=== PATIENT | female | born 1995 | race Caucasian/White ===

== ENCOUNTER 2022-10-26 15:37 | Outpatient (CLI) | payer OTHER, SELFPAY ==
--- NOTE | 2022-10-26 15:57 | P.TNLD_ITS ---
Visit Information Visit Information Date of evaluation: 10/26/22 Primary OB Provider: Celena Santos Reason for Evaluation: Yes non-stress test and Yes rupture of membranes Comments/Additional reasons for admission: Emma called, reporting ROM at 1335 today, clear fluid. Baby moving well. Continues gushing. Feeling anxious about the unknown. Desires antibiotics now, d/c home for expectant management. 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 Bicornuate uterus. Surgical Hx: ureter surgery (1998) Family Hx: depression-mother Meds: probiotic Allergies: None known Social: , lives with Tapan. 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 No tobacco, ETOH or recreational drug use since positive test. Caffeine intake minimal. Pre- wt 125lbs. complicated by GBS bacteriuria, rubella non-immune and bicornuate uterus. Normal growth scans with MFM 08/16 (28 weeks) and 09/27 (34 weeks). EFW 71% & 59% respectively, and fetus vertex both times. 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 Exam Const General: healthy appearing and comfortable Nutritional Appearance: well nourished Orientation: oriented x3 HENMT Head: normal to inspection and normocephalic Skin General: no rashes or lesions noted Neuro General: patient oriented x3 Objective Labs Labs: ABO/RH and CBC drawn, not yet resulted. Evaluation Evaluation Baseline heart rate: 125 Variability: Moderate (11-25) monitor accelerations: Present Monitor Decelerations: Absent Category of Tracing: Reactive Comments: SVE declined due to PROM. Diagnosis, Plan/Disposition Final Diagnosis (1) PROM (premature rupture of membranes): Status: Acute Plan/Disposition Plan: Cefazolin 2 g given IV Reviewed r/b/a of expectant management versus augmentation of labor. Reviewed r/b/a of expectant management in hospital versus d/c home. Return at midnight for evaluation and next dose of antibiotics.
[2022-10-26] MEDS: LACTATED RINGERS 1,000 ML 100 ML IV (16:27)
[2022-10-26] MEDS: CEFAZOLIN 2 GM/100 ML PREMIX 100 ML IV (16:28)
[2022-10-26 18:35] LABS: Hematocrit 39.3 % (36-46); Hemoglobin 13.1 g/dL (12.0-16.0); Mean Corpuscular HGB Conc 33.4 % (30-36); Mean Corpuscular Hemoglobin 28.2 PG (26-34); Mean Corpuscular Volume 84.5 fL (80-100); Platelet Count 213 X10^3/uL (150-400); Red Blood Cell Count 4.65 X10^6/uL (4.0-5.2); Red Cell Distribution Width 14.6 % (11.6-14.8); White Blood Cell Count 10.6 X10^3/uL (4.5-11.0)
== END 2022-10-26 17:05 | disposition home or self-care (01) ==
LOC: LABOR 17:17 → OB 11-01 08:49
PROVIDERS: Referring Provider Advanced Practice Midwife; Visit Provider Advanced Practice Midwife
DX: O42.92 Full-term premature rupture of membranes, unspecified as to length of time between rupture and onset of labor (principal); Z3A.38 38 weeks gestation of pregnancy
CPT/HCPCS: 59025; 76815; 85027; 86900; 86901; 96360; G0378; G0379; J0690

== ENCOUNTER 2022-10-26 23:55 | Outpatient (CLI) | payer OTHER, SELFPAY ==
[2022-10-27] MEDS: CEFAZOLIN VIAL 1 GM in SODIUM CHLORIDE 0.9% 100 ML IV (00:30)
--- NOTE | 2022-10-27 01:13 | PC.NURSE ---
VSS. SROM at 1330 on 10/26/22 has remained clear with pinkish discharge. FHT 125, moderate variability, +accels and no decels. Ctx occassionally, palpate mild. Pt. reports feeling a little crampy, maybe. does not wish to be checked. 1g ancef given. confirmation blood completed for blood type. afebrile. Pt. discharged with spouse with labor precautions and asked to return by 0800 or sooner if needed. Tom aware of and ok with POC. Pt. stable upon d/c.
== END 2022-10-27 01:10 | disposition home or self-care (01) ==
LOC: OB 11-01 08:48
PROVIDERS: Referring Provider Advanced Practice Midwife; Visit Provider Advanced Practice Midwife
DX: O42.92 Full-term premature rupture of membranes, unspecified as to length of time between rupture and onset of labor (principal); Z3A.38 38 weeks gestation of pregnancy
CPT/HCPCS: 59025; 59050; G0378; G0379; J0690

== ENCOUNTER 2022-10-27 07:38 | Inpatient (IN) | payer OTHER, SELFPAY ==
[2022-10-27] MEDS: CEFAZOLIN VIAL 1 GM in SODIUM CHLORIDE 0.9% 100 ML IV ×2 (08:00→16:50)
[2022-10-27] MEDS: LACTATED RINGERS 1,000 ML 100 ML IV ×2 (10:31→14:30)
[2022-10-27] MEDS: OXYTOCIN PREMIX 30 UNIT/500 ML PLAST..BAG IV (10:32)
[2022-10-27 10:48] VITALS: BP 124/80
--- NOTE | 2022-10-27 12:28 | P.PCN_ITS ---
Regional Block Pre-procedure Procedure: Continuous Lumbar Epidural for L&D Attending OB provider: Celena Santos PMH/ROS narrative: at 38+4 SROM, bicornuate uterus ASA Class: II Medications: Current Medications Generic Name Dose Route Start Last Admin Trade Name Freq PRN Reason Stop Dose Admin Calcium Carbonate 1,000 mg 10/27/22 09:23 Calcium Carbonate 500 Mg Tab PO Q4HR PRN Dyspepsia Carboprost Tromethamine 250 mcg 10/27/22 09:23 Carboprost 250 Mcg/Ml Ampul IM Q90M PRN Bleeding Fentanyl 50 mcg 10/27/22 09:23 Fentanyl 100 Mcg/2 Ml Inj IV Q1H PRN Pain, Moderate (4-6) Cefazolin Sodium 1 gm/ Sodium 100 mls @ 200 mls/hr 10/27/22 07:41 10/27/22 08:00 Chloride IV 200 mls/hr Q8H YAJAIRA Administration Lactated Ringer's 1,000 mls @ 100 mls/hr 10/27/22 09:30 10/27/22 10:31 Lactated Ringers IV 100 mls/hr CONT YAJAIRA Administration Oxytocin/Lactated Ringer's 30 unit in 500 mls @ 200 mls/hr 10/27/22 09:23 Oxytocin Premix IV CONT PRN Bleeding Protocol Tranexamic Acid 1,000 mg/ 100 mls @ 200 mls/hr 10/27/22 09:23 Sodium Chloride IV NOW PRN Bleeding Oxytocin/Lactated Ringer's 30 unit in 500 mls @ 2 mls/hr 10/27/22 09:30 10/27/22 10:32 Oxytocin Premix IV 2 milliunit/min TITRATE YAJAIRA 2 mls/hr Administration Protocol 2 MILLIUNIT/MIN Methylergonovine Maleate 0.2 mg 10/27/22 09:23 Methylergonovine 0.2 Mg Tablet PO Q6HR PRN Heavy Bleeding Methylergonovine Maleate 0.2 mg 10/27/22 09:23 Methylergonovine 0.2 Mg/Ml Vial IM NOW PRN Bleeding Misoprostol 800 mcg 10/27/22 09:23 Misoprostol 200 Mcg Tablet WI NOW PRN Bleeding Misoprostol 400 mcg 10/27/22 09:23 Misoprostol 200 Mcg Tablet SL NOW PRN Bleeding Naloxone HCl 0.2 mg 10/27/22 09:23 Naloxone 0.4 Mg/Ml Vial IV Q2MIN PRN Opiate Reversal Ondansetron HCl 4 mg 10/27/22 09:23 Ondansetron 4 Mg/2 Ml Inj IV Q4HR PRN Nausea And Vomiting Oxytocin 10 unit 10/27/22 09:23 Oxytocin 10 Unit/Ml Vial IM NOW PRN Bleeding Allergies: Allergies Allergy/AdvReac Type Severity Reaction Status Date / Time No Known Drug Allergies Allergy Verified 10/27/22 00:13 Procedure Insertion date: 10/27/22 Insertion time: 12:40 Prep/Local: betadine x3 and 1% lidocaine Interspace: L3-4 Patient position: sitting Needle: 18 gauge [employer] (CSE:27g Pencan through [employer]. Clear CSF. 2.5mg MPF bupiv) Loss of resistance with: saline KAISER at (cm): 5 Catheter placed at SKIN (cm): 10 Catheter in SPACE (cm): 5 Insertion: No CSF, No Blood, No Paresthesia with insertion, No Paresthesia with injection and No Test dose reaction Initial Medications TEST DOSE time: 12:42 TEST DOSE: 1.5% lidocaine with epinephrine 1:200k (mL): 3 BOLUS DOSE time: 12:48 BOLUS DOSE (mL): 4 BOLUS DOSE med: other (infusate) Infusion INFUSION: 0.125% bupivacaine and with fentanyl 2 mcg/mL Initial rate (mL/hr): 8 Subsequent interventions: PCEA @ 8+4 Post-procedure Anesthesia time START: 12:29 Anesthesia time END: 22:35 Post-procedure Anesthesia Assessment: Yes CV function: HR/BP stable, Yes Resp function: RR/sat/airway adequate, Yes Pain control adequate, Yes Mental status appropriate and No Anesthesia complications
[2022-10-27] MEDS: FENT 2MCG/ML BUPIV 0.125% EPI 200 MCG/100 ML PLAST..BAG 6 MCG EPIDURAL ×2 (12:54→18:29)
--- NOTE | 2022-10-27 16:13 | PM.OBHP.IH.1 ---
OB HPI Date/Time Date of admission: 10/27/22 Date Patient Seen: 10/27/22 Time Patient Seen: 08:30 History of Present Condition Chief complaint: OBS OF LABOR Date of Last Menstrual Period: 01/29/22 TORI Calculator Estimated Delivery Date Method Current WG Current Estimate 11/05/22 Ultrasound #2 38w 5d Other Estimates 11/05/22 LMP (Certain) 38w 5d 11/07/22 Ultrasound #1 38w 3d 11/06/22 Conception 38w 4d Estimated Gestational Age (weeks): 38w5d : 1 Para: 0 Narrative: Emma is here for her third dose of cefazolin for GBS bacteriuria. Reports contractions every 15 minutes and suprised to see that she is kemal q 4-5 min on the monitor. Rates contractions 4/10 on the pain scale. Would like to stay and consents to pitocin augmentation. Has not had much fluid leaking overnight. Baby has been moving well. Got a little bit of sleep but not much. ROM at 1335 10/26/22, clear fluid. Grossly ruptured confirmed by visualization. 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 Bicornuate uterus. Surgical Hx: ureter surgery (1998) Family Hx: depression-mother Meds: probiotic Allergies: None known Social: , lives with Tapan.? 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 No tobacco, ETOH or recreational drug use since positive test.? Caffeine intake minimal.? Pre- wt 125lbs. complicated by GBS bacteriuria, rubella non-immune and bicornuate uterus. Normal growth scans with MFM 08/16 (28 weeks) and 09/27 (34 weeks). EFW 71% & 59% respectively, and fetus vertex both times. care: good care, initiated at week # (8), number of visits (10) and pounds weight gain (34) Dating criteria OB: LMP confirmed by 2nd trimester US Ultrasounds: normal 1st trimester US and normal mid trimester US Abnormal ultrasound findings: Bicornuate uterus Obstetrical complications: none Medical complications OB: none Preadmission Labs Last OB Lab Results: Blood Type O Positive 10/27/22 08:00 Antibody Screen Negative 10/27/22 08:00 Hematocrit 39.3 % (36-46) 10/26/22 16:10 Hemoglobin 13.1 g/dL (12.0-16.0) 10/26/22 16:10 Glucose Tolerance Testin hr (107) -: Chlamydia screen: negative, Gonorrhea screen: negative and Urine: positive (GBS) -: PAP smear: Normal Genetic Screens: Cell-free DNA: Normal External Labs Blood type OB HPI: O (+) positive HCT: 42.4 -: Urine: positive (GBS) -: Rubella: not immune and Varicella: immune HCAB: negative Narrative: HIV non-reactive RPR non-reactive Hep B Ag non-reactive Platelets 337 (NOB) and 282 (3rd tri labs) Evaluation Evaluation Baseline heart rate: 120 Variability: Moderate (11-25) monitor accelerations: Present Monitor Decelerations: Absent Contraction Frequency (minutes): 5 Uterine Contraction Intensity: Mild Status: Category l Dilation (cm): 2 Effacement (%): 80 Dilation: 1-2 cm Effacement: >/=80% station: -2 Position of cervix: mid Consistency: soft Salgueor score: 8 [facility] Medical History (Updated 10/26/22 @ 17:41 by Celena Santos CNM, ANGEL LUIS) UTI (urinary tract infection) Surgical History History of genitourinary surgery Social History marital status: household members: spouse lives independently: Yes caregiver/support person: No 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 OB Exam Vital signs Blood Pressure: 120/83 Pulse Rate: 92 Respiratory Rate: 18 Temperature: 36.3 F Resp Effort & Inspection: normal respiratory effort and able to speak in complete sentences Auscultation: clear to auscultation bilaterally Cardio Rate: regular rate Rhythm: regular rhythm Heart Sounds: S1 normal, S2 normal and normal, physiologic split S2 Extremities Lower extremity: Yes normal to inspection and edema (none) GI Inspection: normal to inspection Presentation: vertex Objective Labs Labs: Laboratory Results - last 24 hr 10/27/22 08:00 Blood Type O Positive Antibody Screen Negative Assessment and Plan Assessment and Plan Assessment and Plan narrative: at 38w4d PROM x 19 hours Afebrile Bicornuate uterus GBS positive by bacteriuria at 8 weeks Rh positive Rubella non-immune Plan: Admit to L&D Third dose of antibiotics (cefazolin) Begin pitocin augmentation when staffing ratios allow Anticipate . Time Spent with Patient Total time spent with greater than 50% in coordination of care (as documented) at patient's floor/unit and/or counseling patient:: 25 - 35 minutes
[2022-10-27] MEDS: CALCIUM CARBONATE 500 MG TAB 1000 MG PO (16:50)
--- NOTE | 2022-10-27 17:13 | PM.OBPNLAB ---
Date/Time Date Patient Seen: 10/27/22 Time Patient Seen: 17:00 Pain Control Pain control: epidural Comments: CNM assuming care: Patient is esting comfortably, rotating right to left with a peanut ball in place, after epidural placement at 1240. Pitocin (max dose 5mu/min) was turned off twice this afternoon by RN (off since 155) for tachysystole. Abreu is draining clear, yellow urine. Family is supportive at bedside. VSS: Bp 114/71mmHg, HR 58bpm, T 98.1F Temporal Pelvic Exam Dilation (cm): 7 Effacement (%): 90 station: -2 Amniotic membrane status: Leaking (clear) Contractions Contractions on admission: irregular Monitor mode: External Pitocin rate (mU/min): 0 Contraction frequency (min): 2 Contraction duration (min): 1 Contraction pattern: Regular Contraction intensity: Moderate Status status: Category l Heart Rate Baseline: 115 Monitor Accelerations: Present Monitor Decelerations: Absent Monitor Variability: Moderate Assessment and Plan Assessment: active labor (slow) and other (Term nullipara, PROM x28 hours without sx of infection, Bicornuate uterus, GBS positive with adequate tx x4 doses, Rh positive, Rubella non-immune, Cat I FHR) Plan: continuous present management Comments: Encouraged RN to restart pitocin and counseled patient on possible need for IUPC to be able to utilize the pitocin effectively. RN to notify me if unable to increase pitocin. reassess in 2-4 hours or sooner, PRN.
--- NOTE | 2022-10-27 18:54 | PM.OBPNLAB ---
Date/Time Date Patient Seen: 10/27/22 Time Patient Seen: 18:54 Pain Control Pain control: epidural Comments: Called by RN for patient report of constant vaginal pressure after right exaggerated Leiva position. Remains comfortable with an epidural. VSS: BP 139/71mmHg, HR 78bpm, T 37.2C Temporal Pelvic Exam Dilation (cm): 8 Effacement (%): 100 station: 0 Amniotic membrane status: Leaking (clear) Contractions Monitor mode: External Pitocin rate (mU/min): 3 Contraction frequency (min): 2 Contraction duration (min): 1 Contraction pattern: Regular Contraction intensity: Moderate Status status: Category l Heart Rate Baseline: 125 Monitor Accelerations: Present Monitor Decelerations: Early Monitor Variability: Moderate Assessment and Plan Assessment: active labor Plan: continuous present management Comments: Reassess in 4 hours or sooner, PRN.
[2022-10-27 19:02] VITALS: BP 120/83; PULSE 92; RESP 18; TEMP 2.4; TEMP 36.3
--- NOTE | 2022-10-27 19:03 | PM.OBPNLAB ---
Date/Time Date Patient Seen: 10/27/22 Time Patient Seen: 13:30 Pain Control Pain control: epidural Comments: Called to review plan of care with RN at 1220. She was not available. She returned my call at 1330. Reported that patient got epidural and pitocin was off due to frequent contractions. SVE at 1315 5-6 cm. Pelvic Exam Dilation (cm): 5.5 Effacement (%): 80 station: -2 Amniotic membrane status: Leaking (clear) Contractions Date/Time contractions began: Early labor contractions on admission; started overnight. Contractions on admission: irregular Monitor mode: External Pitocin rate (mU/min): 0 Contraction frequency (min): 2 Contraction duration (min): 60 Contraction pattern: Regular Contraction intensity: Mild Status status: Category l Heart Rate Baseline: 115 Monitor Accelerations: Absent Monitor Decelerations: Absent Monitor Variability: Moderate Assessment and Plan Assessment: active labor Plan: continuous present management Comments: Recommend restarting pitocin if contractions space out. Plan for reassessment approx 1730 by CNM/SNM. Anticipate .
--- NOTE | 2022-10-27 23:02 | PM.OBPRVD ---
Events: Labor Augmentation, Premature Rupture Membrane and Prolonged Rupture Membrane Labor & Delivery Delivery date: 10/27/22 Cervical ripening method: none Induction method: per pitocin protocol Delivery augmentation: pitocin Delivery monitor: external FHT and external uterine Route of delivery: Episiotomy description: None L&D Laceration Description: Vaginal - 1st Degree Delivery repair: chromic (3.0) Quantitative Blood Loss: 25 Anesthesia Type: Epidural Narrative: Emma labored comfortably with adequate epidural anesthesia to C/C/+1. Pushing was initiated and Emma made slow, but steady progress with coaching and encouragement. A tether of vaginal septum was noted and due to proximity to urethra and impediment of vertex, CNM discussed clamping and cutting the tethered tissue and Emma agreed. Tissue was cut with minimal bleeding and second stage progressed well. Cat II FHR throughout seconds stage with tachycardia the last 10 minutes of second stage with moderate . NSVB of a viable baby girl in LEIGH position. was sommersaulted through a single loose nuchal cord. The shoulders delivered without additional maneuvers. was placed on maternal abdomen for drying and stimulation. At approximately 40 seconds, the cord was double clamped and cut and was taken to warmer where spontaneous cry occurred. Remaining 30 units of pitocin in 500mL LR was increased to 250mL/hr for AMTSL. Gentle cord traction and a single maternal push led to spontaneous, Schultze delivery of an apparently intact placenta, membranes and 3VC. Fundus immediately firm and bleeding was minimal. Inspection revealed superficial bilateral labial splits and a short 1st degree vaginal laceration which was repaired with 3.0 chromic in the usual fashion. QBL 25mL. remained on warmer for evaluation of increased work of breathing and peds was called to evaluate. Baby 1: Infant gender: Female Presentation: vertex Position: Left Occiput Anterior Placenta delivery description: Spontaneous Cord Vessel Description: 3 Vessels, Nuchal Cord and Loose score (1 min): 5 score (5 min): 7 weight: 3.14 kg Plan for aftercare: Routine care
[2022-10-28] MEDS: KETOROLAC 30 MG/ML VIAL IV (01:03)
[2022-10-28] MEDS: ACETAMINOPHEN 325 MG TABLET 650 MG PO ×3 (04:15→18:06)
[2022-10-28] MEDS: IBUPROFEN 600 MG TABLET PO ×2 (07:46→14:59)
[2022-10-28 17:51] VITALS: BP 110/78; PULSE 84; RESP 16; TEMP 36.8
--- NOTE | 2022-10-28 18:32 | PM.OBDS.1 ---
Discharge Providers Provider Date of admission: 10/27/22 07:38 Discharge Date: 10/28/22 Primary care physician: Doctor Dejuan MD Consults: 10/27/22 09:23 Consult to Anesthesiology Urgent Comment: Consulting Provider: Anesthesiologist Reason for consultation: Epidural 10/28/22 22:59 Consult to Melangeur Operator Routine Comment: Discharge provider: Celena Santos CNM, ARNP Summary Hospital Course Date Patient Seen: 10/28/22 Time Patient Seen: 18:32 Diagnoses: Z34.00, Z3A.38, o42.12, Z37.0 Hospital Course: Emma PROMed 10/26/22 at 1335, After 2 doses of antibiotic and 19 hours, got admitted for augmentation of labor and to continue antibiotics. This led to NSVB at 1025 on 10/27/22 of baby girl. Normal course. Peripartum Data Infant Delivery Method: Natural Vaginal Laceration Description: Vaginal - 1st Degree 1: Gender: Female Disposition of : home Discharge Diagnosis (1) (normal spontaneous vaginal delivery): Status: Acute (2) Breast feeding status of mother: Start Date: 10/27/22 Start Time: 10:25 Status: Acute Status at Discharge Cognitive/behavioral status at discharge: at baseline, oriented Functional status at discharge: independent ambulation Overall status at discharge: patient is back to baseline Time Spent with Patient Time attestation: Total time spent providing and/or coordinating discharge services: 60 minutes Specific discharge activities: teaching including warning signs, support, social support recommendations. Exam Vital Signs (past 8 hours): - 10/28/22 17:51 Temperature 98.2 F Pulse Rate 84 Respiratory Rate 16 Blood Pressure 110/78 Const General: healthy appearing and comfortable Nutritional Appearance: average body habitus Orientation: oriented x3 Resp Effort & Inspection: normal respiratory effort Other: Fundus firm U-3 Skin General: no rashes or lesions noted Extrem General: normal to inspection, full ROM, capillary refill normal and edema (none) Psych Mental Status: mental status grossly normal Discharge Plan Discharge Plan Patient Disposition: Home Discharge orders & Medications Prescriptions: No Action No Known Home Medications Follow up/Referrals: Doctor Zaidi MD [Primary Care Provider] - Celena Santos CNM, ANGEL LUIS [Advanced Veterinary Technology Instructor] - 2 Weeks (Appointments already scheduled at 2 and 6 weeks, Emma confirmed she received e-mails.) Diet/Activity/Treatments Diet: Diet as Tolerated Activity: low gomez x 2 weeks Cold/Heat Therapy: PRN Skin/Wound/Dressing Care Report to your healthcare provider any signs of infection, such as:: chills, fever, night sweats, unusual drainage and unusual redness Visit Report/Discharge Packet Instructions: DI for Labor and Delivery, Vaginal Stand Alone Forms: Discharge: Care, Patient Portal/API, Stroke Signs & Symptoms Discharge Data Primary Care Provider: Miscellaneous,Doctor Discharges patient from system. Discharge Date/Time: 10/28/22 18:43
== END 2022-10-28 23:45 | disposition home or self-care (01) | DRG 807 ==
PROVIDERS: Admitting Provider Advanced Practice Midwife; Referring Provider Advanced Practice Midwife; Visit Provider Advanced Practice Midwife
DX: O99.824 Streptococcus B carrier state complicating childbirth (principal); Z37.0 Single live birth; Z3A.38 38 weeks gestation of pregnancy; O34.03 Maternal care for unspecified congenital malformation of uterus, third trimester; Q51.3 Bicornate uterus; O76 Abnormality in fetal heart rate and rhythm complicating labor and delivery; O42.02 Full-term premature rupture of membranes, onset of labor within 24 hours of rupture
CPT/HCPCS: 36415; 59025; 59050; 76815; 85027; 86850; 86900; 86901; 96360; G0379; J0690; J1885; J2590

== ENCOUNTER → 2024-12-07 15:46 | Outpatient (CLI) | payer OTHER, SELFPAY ==
--- NOTE | 2024-12-07 15:47 | DI.US.S_ITS ---
PROCEDURE: US OB LIMITED INDICATIONS: BICORNUATE UTERUS. GROWTH WITH DOPPLERS. OUTSIDE/PRIOR DATING DATA: Last menstrual period (LMP): 04/04/2024. LMP-based estimated date of delivery (TORI): 01/09/2025. The calculations are made using the clinical TORI of 01/09/2025. TECHNIQUE: Real-time scanning was performed of the fetus, with image documentation and biometric measurements. Biophysical profile was also obtained. Endovaginal scanning: Not performed COMPARISON: Outside Facility, US, US OB FOLLOW UP, 10/17/2024, 14:28. FINDINGS: General: A single living intrauterine gestation is present. Presentation: Vertex. Placenta: Placental position is posterior, without previa. Amniotic fluid index: 142 cm, normal range is 5-24 cm. Single deepest vertical pocket is 4.8 cm. heart rate: 127 beats per minute. Maternal cervical canal: 4.3 cm long. Normal lower limit is 2.5 cm. biometrics: Biparietal diameter: 8.1 cm, 32 weeks 5 days. 3rd percentile Head circumference: 29.4 cm, 32 weeks 3 days. Below limit. Abdominal circumference: 31.6 cm, 35 weeks 4 days. 9th percentile Femur length: 6.5 cm, 33 weeks 5 days. 24th percentile Clinically estimated gestational age: 35 weeks 2 days Composite gestational age from present scan: 33 weeks 4 days Estimated weight and percentile: 2423 g, 24th percentile. Umbilical artery Doppler: 2.2, 2.6, 2.3. Preserved diastolic flow. IMPRESSION: 1. Cantu living intrauterine at 33 weeks 4 days based on today's ultrasound. Fetus is in the 24th percentile for weight. The BPD and head circumference are less than the 5th percentile. This finding could be seen in intrauterine growth restriction. For 2. Normal placenta and amniotic fluid. 3. Umbilical artery Doppler is within normal limits We strive to produce accurate, complete, and clear reports of imaging services. To assist us in improving patient care, this report was composed using standard report templates and voice recognition software. Therefore, it may contain abnormal punctuation, insertions and/or omissions. Occasional wrong-word or sound-alike substitutions may occur. Though we review the report and make efforts to correct it, we do recommend that the report be read carefully in proper context to recognize any text inaccuracies. Dictated by: Robert Vu M.D. on 12/09/2024 at 21:48 Approved by: Robert Vu M.D. on 12/09/2024 at 21:54
== END ==
PROVIDERS: Referring Provider Nurse Practitioner Obstetrics & Gynecology; Visit Provider Nurse Practitioner Obstetrics & Gynecology
DX: O09.93 Supervision of high risk pregnancy, unspecified, third trimester (principal); O28.9 Unspecified abnormal findings on antenatal screening of mother; Z3A.35 35 weeks gestation of pregnancy
CPT/HCPCS: 76815; 76820

== ENCOUNTER → 2024-12-12 09:44 | Outpatient (CLI) | payer OTHER, SELFPAY ==
--- NOTE | 2024-12-12 09:45 | DI.US.S_ITS ---
PROCEDURE: US OB LIMITED INDICATIONS: CORD DOPPLERS AND BPP FOR POSSIBLE IUGR OUTSIDE/PRIOR DATING DATA: Last menstrual period (LMP): 04/04/2024 LMP-based estimated date of delivery (TORI): 01/09/2025 The calculations are made using the working TORI of 01/09/2025 TECHNIQUE: Real-time scanning was performed of the fetus for biophysical profile, with image documentation. Color and pulse Doppler interrogation was also performed of the umbilical artery near its insertion into the placenta. Endovaginal scanning: Not performed COMPARISON: [facility], OB LIMITED, 12/07/2024, 15:54. FINDINGS: General: A single living intrauterine gestation is present. Presentation: Vertex Placenta: Placental position is posterior, without previa. Amniotic fluid index: 13.2 cm, normal range is 5-24 cm. Single deepest vertical pocket is 6.9 cm. heart rate: 162 beats per minute. Maternal cervical canal: Closed and measures 4.5 cm long. Normal lower limit is 2.5 cm. Estimated gestational age from initial scan: 36 weeks, 0 day. Biophysical profile: Tone: 2 points. Movement: 2 points. Respiration: 2 points. Largest pocket of fluid: 2 points. Umbilical artery Doppler: 2.8, 2.0, 2.3 IMPRESSION: 1. Single live intrauterine gestation with fetus in vertex presentation. heart rate is 162 beats per minute. Normal CHERIE at 13.2 cm. Cervix is closed and measures 4.5 cm in length. 2. biophysical profile score is 8/8. 3. Normal umbilical artery S/D ratio. We strive to produce accurate, complete, and clear reports of imaging services. To assist us in improving patient care, this report was composed using standard report templates and voice recognition software. Therefore, it may contain abnormal punctuation, insertions and/or omissions. Occasional wrong-word or sound-alike substitutions may occur. Though we review the report and make efforts to correct it, we do recommend that the report be read carefully in proper context to recognize any text inaccuracies. Dictated by: Leonard Pearl M.D. on 12/12/2024 at 12:23 Approved by: Leonard Pearl M.D. on 12/12/2024 at 12:25
== END ==
PROVIDERS: Referring Provider Advanced Practice Midwife; Visit Provider Advanced Practice Midwife
DX: O09.93 Supervision of high risk pregnancy, unspecified, third trimester (principal); O28.9 Unspecified abnormal findings on antenatal screening of mother; Z3A.34 34 weeks gestation of pregnancy
CPT/HCPCS: 76815; 76820

== ENCOUNTER 2025-01-01 09:50 | Inpatient (IN) | payer OTHER, SELFPAY ==
--- NOTE | 2025-01-01 10:01 | PM.OBHP.1 ---
OB HPI Date/Time Date of admission: 01/01/25 Date Patient Seen: 01/01/25 Time Patient Seen: 10:01 History of Present Condition Chief complaint: OBS OF LABOR : 2 Para: 1 Estimated Date of Delivery: 01/09/25 Estimated Gestational Age (weeks): 38.6 Narrative: Emma Valdez is a 29 year old female @ 38wks 6 days by sure LMP concordant with 9wk US here for evaluation of labor. Contractions started this morning and have been irregular, but getting progressively stronger. +FM. No vaginal bleeding or leaking of fluid. care with CNMs augmented by MFM consultation and serial growth USs for bicornate uterus. Planning an epidural. , Tapan, is present and supportive. History of Present care: good care, initiated at week # (9), number of visits (9) and pounds weight gain (25) Dating criteria: LMP confirmed by 1st trimester US Ultrasounds: normal mid trimester US Obstetrical complications: none Medical complications: none Preadmission Labs Blood type: O (+) positive -: Antibody screen: negative, GBS status: negative, HBsAG: negative, HIV: negative and RPR/VDLR: negative -: Chlamydia screen: not detected and Gonorrhea screen: not detected -: Rubella: not immune and Varicella: immune HCT: 37.3 HCAB: negative Cell-free DNA: Negative x3 1 hr GTT: 104 Prior (ies) History: 10/27/2022: NSVB, baby girl Rory, 3140 grams, 1st degree, epidural Hx # Term Pregnancies: 1 Hx # Pregnancies: 0 Number of Living Children: 1 Multiple births: 0 Spontaneous abortions: 0 Ectopic pregnancies: 0 Elective abortions: 0 Evaluation Evaluation Baseline heart rate: 135 Variability: Moderate (11-25) monitor accelerations: Present Monitor Decelerations: Absent Contraction Frequency (minutes): 6 Uterine Contraction Intensity: Strong/Firm Status: Category l Dilation (cm): 7 Effacement (%): 90 Dilation: >/=5 cm Effacement: >/=80% station: -1 Position of cervix: posterior Consistency: soft Salguero score: 10 PFSH Medical History (Updated 01/01/25 @ 10:12 by Delmis Chino CNM) UTI (urinary tract infection) Surgical History History of genitourinary surgery Social History marital status: household members: spouse lives independently: Yes caregiver/support person: No occupational status: employed [employer]: [employer] do you feel safe at home: Yes alcohol intake: former substance use type: does not use Meds Home Medications and Allergies Home Medications ?Medication ?Instructions ?Recorded ?Confirmed ?Type No Known Home Medications 10/27/22 10/27/22 History Allergies Allergy/AdvReac Type Severity Reaction Status Date / Time No Known Drug Allergies Allergy Verified 10/27/22 00:13 Review of Systems Review of Systems ROS: Yes All systems reviewed with the patient and are negative except as otherwise documented OB Exam Vital signs Blood Pressure: 125/87 Pulse Rate: 91 Respiratory Rate: 14 Temperature: 97.3 F Resp Effort & Inspection: normal respiratory effort and able to speak in complete sentences Auscultation: clear to auscultation bilaterally Cardio Rate: regular rate Rhythm: regular rhythm Heart Sounds: S1 normal and S2 normal Presentation: vertex Estimated Weight (lbs): 6 Assessment and Plan Assessment and Plan Assessment and Plan narrative: A: Term primipara Active labor No indication for antibioitics Cat I FHR P: Admit routine labor orders. Expectant management of labor. Epidural GRETEL. Reassess in 2 hours or sooner, PRN. Time-Based Coding :: [TOTAL MINUTES] spent with patient and on the chart (including review of chart, obtaining history, exam, reviewing outside data, placing orders, documenting exam and treatment plan, and counseling patient) on [DATE].
[2025-01-01 10:17] VITALS: BP 125/87; PULSE 91; RESP 14; TEMP 36.3
[2025-01-01 10:22] LABS: Add Manual Diff / Slide Review NO; Basophils Absolute Auto 0 /uL (0-100); Basophils Percent Auto 0.1 % (0-2); Eosinophils Absolute Auto 100 /uL (0-450); Eosinophils Percent Auto 0.5 % (2-4); Hematocrit 41.7 % (36-46); Hemoglobin 14.1 g/dL (12.0-16.0); Lymphocytes Absolute Auto 1200 /uL (1100-4500); Lymphocytes Percent Auto 9.5 % (25-40); Mean Corpuscular HGB Conc 33.8 % (30-36); Mean Corpuscular Volume 85.8 fL (80-100); Monocytes Absolute Auto 600 /uL (0-900); Monocytes Percent Auto 4.8 % (3-14); Neutrophils Absolute Auto 10500 /uL (1500-7000); Neutrophils Percent Auto 85.1 % (50-75); Platelet Count 197 X10^3/uL (150-400); Red Blood Cell Count 4.86 X10^6/uL (4.0-5.2); Red Cell Distribution Width 15.5 % (11.6-14.8); White Blood Cell Count 12.4 X10^3/uL (4.5-11.0)
[2025-01-01 10:32] VITALS: BP 125/87
[2025-01-01] MEDS: LACTATED RINGERS 1,000 ML 100 ML IV ×2 (11:14→11:15)
--- NOTE | 2025-01-01 11:41 | PM.AN.REGBLK ---
[facility] <Deanna Hayes CRNA - Last Filed: 01/01/25 17:06> Pre-procedure Procedure: Continuous Lumbar Epidural for L&D (CSE) PMH/ROS narrative: Healthy 29yr old with no problems requesting epidural for labor. ASA Class: II Labs: Hct 41.7 % (36-46) 01/01/25 10:07 Plt Count 197 X10^3/uL (150-400) 01/01/25 10:07 Medications: Current Medications Generic Name Dose Route Start Last Admin Trade Name Freq PRN Reason Stop Dose Admin Calcium Carbonate 1,000 mg 01/01/25 09:59 Calcium Carbonate 500 Mg Tab PO Q2HR PRN Dyspepsia Carboprost Tromethamine 250 mcg 01/01/25 09:53 Carboprost 250 Mcg/Ml Ampul IM Q90M PRN Bleeding Fentanyl 100 mcg 01/01/25 09:59 Fentanyl 100 Mcg/2 Ml Inj IV Q1H PRN Pain, Severe (7-10) Oxytocin/Lactated Ringer's 30 unit in 500 mls @ 200 mls/hr 01/01/25 09:53 Oxytocin Premix IV CONT PRN Bleeding Protocol Tranexamic Acid 1,000 mg/ 100 mls @ 600 mls/hr 01/01/25 09:53 Sodium Chloride IV NOW PRN Bleeding Lactated Ringer's 1,000 mls @ 100 mls/hr 01/01/25 10:00 01/01/25 11:15 Lactated Ringers IV 01/01/25 19:59 100 mls/hr CONT YAJAIRA Administration Lidocaine HCl 20 ml 01/01/25 09:53 Lidocaine 1% 20 Ml INJ INTRA-OP PRN Post Delivery Methylergonovine Maleate 0.2 mg 01/01/25 09:53 Methylergonovine 0.2 Mg Tablet PO Q6HR PRN Heavy Bleeding Methylergonovine Maleate 0.2 mg 01/01/25 09:53 Methylergonovine 0.2 Mg/Ml Vial IM NOW PRN Bleeding Mineral Oil 30 ml 01/01/25 09:53 Mineral Oil 30 Ml Udc TOP PRN PRN Version Misoprostol 800 mcg 01/01/25 09:53 Misoprostol 200 Mcg Tablet CA NOW PRN Bleeding Misoprostol 400 mcg 01/01/25 09:53 Misoprostol 200 Mcg Tablet SL NOW PRN Bleeding Naloxone HCl 0.2 mg 01/01/25 09:53 Naloxone 0.4 Mg/Ml Vial IV Q2MIN PRN Opiate Reversal Ondansetron HCl 4 mg 01/01/25 09:59 Ondansetron 4 Mg/2 Ml Inj IV Q4HR PRN Nausea And Vomiting Oxytocin 10 unit 01/01/25 09:53 Oxytocin 10 Unit/Ml Vial IM NOW PRN Bleeding Allergies: Allergies Allergy/AdvReac Type Severity Reaction Status Date / Time No Known Drug Allergies Allergy Verified 10/27/22 00:13 Procedure Insertion date: 01/01/25 Insertion time: 10:53 Prep/Local: 1% lidocaine (Chloroprep) Interspace: L3-4 Patient position: sitting Needle: 17 gauge Tuohy Loss of resistance with: saline KAISER at (cm): 6 Catheter placed at SKIN (cm): 12 Catheter in SPACE (cm): 5 Initial Medications TEST DOSE time: 10:54 BOLUS DOSE time: 10:57 BOLUS DOSE (mL): 2 BOLUS DOSE med: other (remaining test dose 1.5% lido with epi) Infusion INFUSION: 0.125% bupivacaine and with fentanyl 2 mcg/mL Initial rate (mL/hr): 6 Subsequent interventions: 12:35 - Called for bolus. Apparently the epidural infusion line was clamped since insertion. Line was unclamped, and pt has bolused herself x1 via PCEA. She reports she has minimal movement of BLE below the knee but is still able to move both thighs. Baby is doing well. BP 98/64. Pt is 9 cm. Bolused with lido PF 2% 4 ml and increased pump to 8 ml/hr with bolus of 5 ml. [place] 1308 5cc bolus of 0.25% bupivicaine pt continues with painful contractions Post-procedure Anesthesia date START: 01/01/25 Anesthesia time START: 10:41 Anesthesia date END: 01/01/25 Anesthesia time END: 15:11 Post-procedure Anesthesia Assessment: Yes CV function: HR/BP stable, Yes Resp function: RR/sat/airway adequate, Yes Post-op hydration adequate, Yes Pain control adequate, Yes Nausea & vomiting absent, Yes Temperature > 36 C and Yes Mental status appropriate <Bhumika Acosta DO - Last Filed: 01/02/25 08:28> Infusion Subsequent interventions: 12:35 - Called for bolus. Apparently the epidural infusion line was clamped since insertion. Line was unclamped, and pt has bolused herself x1 via PCEA. She reports she has minimal movement of BLE below the knee but is still able to move both thighs. Baby is doing well. BP 98/64. Pt is 9 cm. Bolused with lido PF 2% 4 ml and increased pump to 8 ml/hr with bolus of 5 ml. Keyanna
--- NOTE | 2025-01-01 15:45 | PM.OBPRVD ---
Events: Labor Augmentation (AROM) Labor & Delivery Delivery date: 01/01/25 Delivery Time: 15:00 Intrapartal Events: None Cervical ripening method: none Induction method: none Delivery augmentation: rupture of membranes Delivery monitor: external FHT and external uterine Route of delivery: Episiotomy description: None L&D Laceration Description: None Quantitative Blood Loss: 300 Anesthesia Type: Epidural Narrative: Spontaneous labor was augmented with AROM at 9cm for patient discomfort from rectal pressure, resulting in moderate relief. Pushing was initiated at AL/C/0 when significant discomfort from rectal pressure returned despite epidural anesthesia in place. Coaching with strong maternal effort led to NSVB of a vigorous baby girl in AURORA position over an intact perinume. there was no nuchal cord and the shoulders delivered transverse, without additional maneuvers. was placed on maternal abdomen for drying and skin to skin. 30 units of pitocin in 500mL LR was started at 333mL/ht for AMTSL. After cessation of pulsation, the cord was double clamped by RN and cut by FOB. Cord blood sample was collected. Gentle cord traction and a single maternal push led to spontaneous, Schultze delivery of an apparently intact placenta, membranes and 3VC. Fundus immediatley firm and bleeding minimal. qBL 300mL. Both mother and baby stable and skin to skin as I left the room. Baby 1: Infant gender: Female Presentation: vertex Position: Right Occiput Anterior Placenta delivery description: Spontaneous and Normal Configuration Cord Vessel Description: 3 Vessels score (1 min): 9 score (5 min): 9 weight: 3.251 kg Plan for aftercare: Routine care
[2025-01-01] MEDS: DERMOPLAST SPRAY 20% 60 ML 1 SPRAY TOP (15:46)
[2025-01-01] MEDS: KETOROLAC 30 MG/ML VIAL IV (15:47)
[2025-01-01] MEDS: WITCH HAZEL/GLYCERIN PADS 1 EACH TOP (15:47)
[2025-01-01] MEDS: OXYTOCIN PREMIX 30 UNIT/500 ML PLAST..BAG 200 UNIT IV (15:48)
[2025-01-01] MEDS: ACETAMINOPHEN 325 MG TABLET 650 MG PO (20:54)
[2025-01-02] MEDS: IBUPROFEN 600 MG TABLET PO ×2 (02:32→13:51)
[2025-01-02] MEDS: LANOLIN OINT 7 GM 1 APPLIC TOP (02:33)
[2025-01-02] MEDS: ACETAMINOPHEN 325 MG TABLET 650 MG PO (06:28)
--- NOTE | 2025-01-02 07:53 | PM.OBDS.1 ---
Discharge Providers Provider Date of admission: 01/01/25 09:50 Discharge Date: 01/02/25 Primary care physician: Maria Eugenia Consults: 01/01/25 09:53 Consult to Anesthesiology Urgent Comment: Consulting Provider: Anesthesiologist Reason for consultation: Epidural Has provider been notified: Yes 01/02/25 15:31 Consult to [employer] Routine Comment: Discharge provider: Delmis Chino CNM Summary Hospital Course Date Patient Seen: 01/02/25 Time Patient Seen: 07:54 Diagnoses: O80 Hospital Course: Spontaneous labor with epidural anesthesia led to NSVB of a healthy baby girl PPD1: Stable s/p NSVB without lacerations. Voiding, ambulating and independently. Tolerating a general diet. Pain is well controlled with pO medication. Vaginal bleeding is scant, without clots. She and Tapan are eager for discharge to hoe today with their new daughter. Peripartum Data Infant Delivery Method: Natural Vaginal Laceration Description: None Episiotomy description: None Procedures: O80 complications: none [place] 1: Gender: Female Disposition of : home Discharge Diagnosis (1) (normal spontaneous vaginal delivery): Status: Acute Problem Details: Routine course Status at Discharge Cognitive/behavioral status at discharge: oriented and calm Functional status at discharge: independent ambulation Overall status at discharge: patient is progressing back to baseline Time Spent with Patient Time attestation: Total time spent providing and/or coordinating discharge services: Time spent: Less than 30 minutes Objective Labs 01/01/25 10:07 Labs: Laboratory Results - last 24 hr 01/01/25 10:07 WBC 12.4 H RBC 4.86 Hgb 14.1 Hct 41.7 MCV 85.8 MCH 29.0 MCHC 33.8 RDW 15.5 H Plt Count 197 Neut % (Auto) 85.1 H Lymph % (Auto) 9.5 L Mchenry % (Auto) 4.8 Eos % (Auto) 0.5 L Baso % (Auto) 0.1 Neut # (Auto) 63470 H Lymph # (Auto) 1200 Mchenry # (Auto) 600 Eos # (Auto) 100 Baso # (Auto) 0 Blood Type O Positive Antibody Screen Negative Exam Vital Signs (past 8 hours): BP 98/67, HR 72bpm, T 97.5F Temporal, SpO2 98%on RA Const General: healthy appearing and comfortable Nutritional Appearance: average body habitus Other: Fundus form @ U-1, lochia scant without clots. Perineum intact with mild edema. Psych Mood: congruent mood Affect: normal affect Discharge Plan Discharge Plan Patient Disposition: Home Discharge orders & Medications Prescriptions: New ibuprofen 600 mg Tablet 600 mg PO Q6H PRN (Reason: Pain, Mild (1-3)) 14 Days Qty: 40 0RF No Action No Known Home Medications Follow up/Referrals: Danii Mckeon ARNP [Non-Staff, Nursing] Referral Note: RN to schedule Diet/Activity/Treatments Diet: Diet as Tolerated and Feed on demand Skin/Wound/Dressing Care Report to your healthcare provider any signs of infection, such as:: chills, fever, increased pain, unusual drainage and unusual redness Visit Report/Discharge Packet Instructions: DI for Depression Stand Alone Forms: Patient Portal/API, Stroke Signs & Symptoms
== END 2025-01-02 14:30 | disposition home or self-care (01) | DRG 807 ==
PROVIDERS: Admitting Provider Nurse Practitioner Obstetrics & Gynecology; Referring Provider Nurse Practitioner Obstetrics & Gynecology; Visit Provider Nurse Practitioner Obstetrics & Gynecology
DX: O34.03 Maternal care for unspecified congenital malformation of uterus, third trimester (principal); Z37.0 Single live birth; Q51.3 Bicornate uterus; Z3A.38 38 weeks gestation of pregnancy; Z67.40 Type O blood, Rh positive; Z28.39 Other underimmunization status
CPT/HCPCS: 36415; 59050; 85025; 86850; 86900; 86901; G0379; J1885; J2590